=== PATIENT | female | born 1970 | race Caucasian/White ===

== ENCOUNTER 2019-04-27 08:23 | Emergency (ER) | payer BC ==
--- NOTE | 2019-04-27 08:28 | PDOC ---
History of Present Illness - General Chief Complaint: Headache Stated Complaint: headache, blurry vision for a few seconds Time Seen by Provider: 04/27/19 08:26 - History of Present Illness Initial Comments: 04/27/19 08:42 48yo female with no signif pmhx presents for eval of L posterior headache x 3 days. Pt states pain started in her upper neck 3 days ago and now she feels the pain in her L posterior/parietal region. States she has been taking aleve and asa for the fuentes with minimal relief. States she felt a pinched nerve at the beginning. Pt states this AM she was going to [employer] and felt the fuentes and then had a split second where she thought she might have blurred vision, which resolved within a second. States she blinked and her vision was back to normal. Pt states her last dose of aleve was last night. Pt states she has been able to sleep despite the fuentes. No assoc paresthesias, weakness, n/v/d. No f/c. No facial pain, rhinorrhea, sore throat. No cough, congestion. No cp/sob/abd pain. No dysuria. Pt denies all other complaints. Pt ambulated into the ER with a steady gait. Pmhx: denies Pshx: c sections, gastric bypass, uterine ablation All: NKDA Past History - Past Medical History Allergies/Adverse Reactions: Allergies Allergy/AdvReac Type Severity Reaction Status Date / Time No Known Drug Allergies Allergy Verified 04/27/19 08:25 Home Medications: Ambulatory Orders Aspirin [ASA -] 81 mg PO PRN PRN 04/27/19 Cephalexin Monohydrate [Keflex -] 500 mg PO BID #14 capsule 04/27/19 Naproxen Sodium [Aleve] 220 mg PO PRN PRN 04/27/19 Anemia: Yes - Surgical History Abdominal Surgery: Yes (GASTRIC BYPASS) Cholecystectomy: Yes Orthopedic Surgery: No - Psycho Social/Smoking Cessation Hx Smoking History: Former smoker Have you smoked in the past 12 months: No If you are a former smoker, when did you quit?: 10YRS AGO Hx Alcohol Use: Yes (SOCIALLY) Substance Use Type: Alcohol Review of Systems - Review of Systems Able to Perform ROS?: Yes Is the patient limited Slovenian proficient: No Constitutional: No: Chills, Fever HEENTM: Yes: Blurred Vision. No: Double Vision, Ear Pain, Nose Congestion, Throat Pain Respiratory: No: Cough, Shortness of Breath Cardiac (ROS): No: Chest Pain, Palpitations ABD/GI: No: Diarrhea, Nausea, Vomiting, Abdominal cramping : No: Burning, Dysuria Musculoskeletal: Yes: Neck Pain Integumentary: No: Rash Neurological: Yes: Headache. No: Numbness, Paresthesia, Tingling, Weakness, Ataxia, Dizziness All Other Systems: Reviewed and Negative *Physical Exam - Vital Signs 04/27/19 08:46 Selected Entries 04/27/19 08:24 Temperature 99.1 F Pulse Rate 91 H Respiratory 20 Rate Blood Pressure 132/90 Blood Pressure 104 Mean O2 Sat by Pulse 98 Oximetry (%) Weight 122.47 kg - Physical Exam General Appearance: Yes: Nourished, Appropriately Dressed. No: Apparent Distress HEENT: positive: EOMI, DESTINY, Normal Voice, TMs Normal, Pharynx Normal. negative : Photophobia, Pharyngeal Erythema, Tonsillar Exudate, Tonsillar Erythema, Nasal Congestion, Rhinorrhea, TM Bulging, TM Erythema Neck: positive: Supple Respiratory/Chest: positive: Lungs Clear, Normal Breath Sounds. negative: Respiratory Distress Cardiovascular: positive: Regular Rhythm, Regular Rate, S1, S2. negative: Edema Gastrointestinal/Abdominal: positive: Normal Bowel Sounds, Soft. negative: Guarding, Rebound, Tenderness Musculoskeletal: positive: Normal Inspection, Other (no midline ttp, c/t/l spine , L paraspinal ttp at proximal trapezius that reproduces fuentes). negative: CVA Tenderness, Vertebral Tenderness Extremity: positive: Normal Capillary Refill, Normal Range of Motion, Other ( ambulatory with a steady gait). negative: Swelling, Calf Tenderness Integumentary: positive: Normal Color, Dry, Warm Neurologic: positive: radiology interventional physician II-XII NML intact, Fully Oriented, Alert, Normal Mood/ Affect, Normal Response, Motor Strength 5/5, Other (negative cerebellar testing , ambulates with a steady gait) ED Treatment Course - LABORATORY CBC & Chemistry Diagram: 04/27/19 09:10 04/27/19 09:10 Medical Decision Making - Medical Decision Making 04/27/19 08:48 a/p: 48yo female with L sided fuentes x 3 days -neuro intact -no focal deficits -L trap ttp, L sided fuentes -no meningeal signs -no ttp over mastoid -give pt taking asa/aleve will send labs to eval renal function -will perform visual acuity give brief second of blurred vision - most likely secondary to pain - states fuentes 11/24 -will medicate, tylenol/reglan/ivf -will monitor and reassess 04/27/19 08:51 L eye 20/25 R 20/20 both 20/20 with glasses- pt wears glasses 04/27/19 09:42 pt with uti no elevated wbc pt states fuentes resolved pt states she feels much better will give abx pt states hx of kidney stones, blood in urine, but pt denies flank pain, abd pain 04/27/19 10:24 pt states all symptoms resolved pt drinking water neuro intact stable for dc to home and follow up with PMD discussed all reasons to return to the ER and need for follow up Discharge - Discharge Information Problems reviewed: Yes Clinical Impression/Diagnosis: Headache, UTI (urinary tract infection) Condition: Stable Disposition: HOME - Admission No - Additional Discharge Information Prescriptions: Cephalexin Monohydrate [Keflex -] 500 mg PO BID #14 capsule - Follow up/Referral Referrals: Yolande De La Cruz MD [Staff Physician] - Noah Hua MD [Staff Physician] - - Patient Discharge Instructions Patient Printed Discharge Instructions: DI for Urinary Tract Infection (UTI), DI for Headache Additional Instructions: Please take tylenol or motrin as needed for your headache. Please make a follow up appointment with your PMD and also make a follow up appointment with the urologist for further evaluation of your UTI and history of kidney stones. Please return to the ER with any further concerns or complaints. Please take all antibiotics as prescribed. - Post Discharge Activity
[2019-04-27 08:31] VITALS: BP 132/90; PULSE 91; TEMP 99.1; BMI 43.5
[2019-04-27] MEDS ORDERED: SODIUM CHLORIDE 0.9% 1000 ML INFUS.BAG IV ONE (08:42)
[2019-04-27] MEDS ORDERED: METOCLOPRAMIDE HCL INJECTION 10 MG/2 ML VIAL IVPUSH ONE (08:42)
[2019-04-27] MEDS ORDERED: ACETAMINOPHEN 1000 MG/100 ML VIAL (NON FORMULARY) IVPB ONE (08:42)
[2019-04-27] MEDS ORDERED: METOCLOPRAMIDE HCL INJECTION 10 MG/2 ML VIAL ONE (08:55)
[2019-04-27] MEDS ORDERED: ACETAMINOPHEN INJECTION 100 ML IVPB ONE (08:55)
[2019-04-27 09:26] LABS: BASO % 0.8 % (0-2.0); EOS % 1.5 % (0-4.5); HEMATOCRIT 43.1 % (32.4-45.2); HEMOGLOBIN 14.2 GM/dl (10.7-15.3); LYMPH % 27.2 % (8-40); MCH 31.5 pg (25.7-33.7); MEAN CELL VOLUME 95.2 fl (80-96); MEAN PLT VOLUME 7.8 fl (7.5-11.1); MONO % 6.7 % (3.8-10.2); NEUT % 63.8 % (42.8-82.8); PLATELET COUNT 307 K/MM3 (134-434); RBC 4.52 M/mm3 (3.60-5.2); RDW 12.9 % (11.6-15.6); WHITE BLOOD COUNT 7.3 K/mm3 (4.0-10.8)
[2019-04-27 09:34] LABS: BILIRUBIN,TOTAL 1.1 mg/dl (0.2-1); CALCIUM 9.3 mg/dl (8.5-10); CREATININE 0.5 mg/dl (0.55-1.3); POTASSIUM 4.2 mmol/L (3.5-5.1); TOT PROT 7.2 g/dl (6.4-8.2)
[2019-04-27] MEDS ORDERED: CEFTRIAXONE 1 GM in DEXTROSE 5%-WATER - 100 ML IVPB ONE (09:41)
[2019-04-27] MEDS ORDERED: cefTRIAXone SODIUM 1 GM VIAL ONE (09:43)
[2019-04-27 09:57] LABS: EPITHELIAL CELLS MANY /hpf
== END 2019-04-27 10:41 | disposition home or self-care (01) ==
LOC: FER 08:23
PROC: 3E033NZ Introduction of Analgesics, Hypnotics, Sedatives into Peripheral Vein, Percutaneous Approach (ICD-10-PCS; principal; 2019-04-27)
PROC: 3E03329 Introduction of Other Anti-infective into Peripheral Vein, Percutaneous Approach (ICD-10-PCS; 2019-04-27)
PROC: 3E033GC Introduction of Other Therapeutic Substance into Peripheral Vein, Percutaneous Approach (ICD-10-PCS; 2019-04-27)
DX: N39.0 Urinary tract infection, site not specified (principal); R51 Headache; Z87.891 Personal history of nicotine dependence; Z98.84 Bariatric surgery status
CPT/HCPCS: 36415; 80053; 81003; 81015; 84703; 85025; 99283-25; J0131; J7030

== ENCOUNTER 2020-04-06 04:51 | Day surgery (SDC) | payer BC ==
[2020-04-03 09:03] VITALS: BMI 41.9
[2020-04-06] MEDS ORDERED: PROPOFOL 20 ML ONE ×2 (07:47)
[2020-04-06] MEDS ORDERED: MIDAZOLAM HCL 2 MG/2 ML SINGLE DOSE VIAL ONE (07:47)
[2020-04-06] MEDS ORDERED: IBUPROFEN 400 MG TABLET (FP) PO PRN (07:57)
[2020-04-06] MEDS ORDERED: ACETAMINOPHEN 325 MG TABLET (FP) PO PRN (07:57)
[2020-04-06] MEDS ORDERED: IODINE/POTASSIUM IODIDE 5%/10% 14 ML BOTTLE NR ONE (08:16)
[2020-04-06] MEDS ORDERED: FERRIC SUBSULFATE 500 ML BOTTLE TP ONE (08:17)
[2020-04-06] MEDS ORDERED: oxyCODONE HCL 5 MG TABLET PO PRN ×2 (09:59)
[2020-04-06] MEDS ORDERED: ONDANSETRON 4 MG/2 ML VIAL IVPUSH PRN (09:59)
[2020-04-06] MEDS ORDERED: LACTATED RINGERS SOLUTION 1,000 ML IV SCH (10:00)
[2020-04-06] MEDS ORDERED: IBUPROFEN 400 MG TABLET (FP) PO ONE (10:17)
[2020-04-06 10:56] VITALS: BP 125/85; PULSE 65; TEMP 97.3
== END 2020-04-06 11:45 | disposition home or self-care (01) ==
LOC: JASU-SURG 04:51
PROVIDERS: ATTEND Obstetrics & Gynecology
PROC: 0UBC7ZX Excision of Cervix, Via Natural or Artificial Opening, Diagnostic (ICD-10-PCS; principal; 2020-04-06 07:30)
DX: N87.0 Mild cervical dysplasia (principal); R87.820 Cervical low risk human papillomavirus (HPV) DNA test positive
CPT/HCPCS: 36415; 84703; 86850; 86900; 86901; 88307-TC; 94760

== ENCOUNTER 2020-07-23 04:43 | Day surgery (SDC) | payer BC ==
[2020-07-22 14:18] VITALS: BMI 42.7
[2020-07-23 10:25] VITALS: TEMP 97.8
[2020-07-23 10:50] VITALS: BP 112/69; PULSE 61
== END 2020-07-23 11:05 | disposition home or self-care (01) ==
LOC: JASU-ENDO 04:43
PROVIDERS: ATTEND Internal Medicine Gastroenterology
PROC: 0DJD8ZZ Inspection of Lower Intestinal Tract, Via Natural or Artificial Opening Endoscopic (ICD-10-PCS; principal; 2020-07-23 09:39)
DX: Z12.11 Encounter for screening for malignant neoplasm of colon (principal)